=== PATIENT | male | born 1965 | race Caucasian/White ===

== ENCOUNTER 2023-03-29 07:04 | Emergency (ER) | payer OTHER, SELFPAY ==
[2023-03-29 07:11] VITALS: BP 145/79; PULSE 65; RESP 16; TEMP 36.8; O2SAT 96; BMI 26.6
--- NOTE | 2023-03-29 07:31 | ED_ITS ---
HPI - Neck Pain/Injury General Chief Complaint: Neck Pain/Injury Stated Complaint: something with c spine pain is 05/03 Time Seen by Provider: 03/29/23 07:30 Source: patient Mode of arrival: Ambulatory Limitations: no limitations History of Present Illness HPI Narrative: 57-year-old male with history of hypothyroidism who presents with complaint of thoracic back pain at the teeth 3/for region and radiation down his right arm. Patient states he is normally very active he has not really noticed a lot of back pain until last Thursday and it has been slowly increasing over time. He states pain radiates down his right arm, he has paresthesias. He feels like there is a decrease in his strength. He is able to move flex extend states he has not been dropping objects but notices a change. Patient states pain does not radiate down the left. He denies any trauma or injuries. Does not recall any particular episode that occurred and caused his pain. Patient states he has not had similar issues in the past. Patient states he would a prescription filled for naproxen from his primary care physician on Thursday started it yesterday without any improvement. Patient has seen chiropractors and saw an early in the week. Patient states no fevers, no chills. Denies any other daily medications besides levothyroxine. Has had prior hernia repairs, hemorrhoidectomy but no back surgeries or interventions. Reported allergy to penicillin. Denies tobacco, 1 alcoholic drink daily, no IV drugs or illicit. Related Data Home Medications Medication Instructions Recorded Confirmed Lactobacillus acidophilus 1 tab PO QDAY ##0 07/05/16 ascorbic acid (vitamin C) 500 mg 500 mg PO QDAY ##0 07/05/16 tablet Previous Rx's Medication Instructions Recorded diazepam 5 mg tablet (Valium) 5 mg PO TID PRN muscle spasm #10 03/29/23 tabs meloxicam 7.5 mg tablet 7.5 mg PO BID PRN pain #14 tabs 03/29/23 oxycodone 5 mg tablet 5 mg PO Q6H PRN pain #10 tabs 03/29/23 prednisone 10 mg tablets in a dose See Rx Instructions PO .COMPLEX 03/29/23 pack #15 ea Allergies Allergy/AdvReac Type Severity Reaction Status Date / Time Penicillins [PENICILLINS] Allergy Unknown Verified 03/29/23 07:19 Review of Systems Review of Systems ROS Unobtainable: All systems reviewed & are unremarkable except as noted in HPI and below Patient History Social History Smoking Status: Never smoker Smoking Status: Never smoker alcohol intake frequency: 0-2 drinks per day Substance Use Type: does not use Exam Narrative Exam Narrative: GEN: well nourished, well appearing male, alert and oriented x 3, patient appears to be in moderate distress. HEENT: Atraumatic, pupils are equal round reactive to light, extraocular movements are intact, there is no conjunctival pallor. HEART: Regular rate and rhythm without murmur, clicks, rubs. LUNGS:Lungs clear to auscultation, no wheezes, rales, crackles, chest moves symmetrically ABD:bowel sounds normal, soft, non-tender, no guarding, rebound, rigidity, no masses noted, no hepatosplenomegaly :No CVA tenderness BACK: No cervical, no lumbar vertebral point tenderness. Patient has mild thoracic tenderness T3 for at the right lateral border. Patient has normal range of motion, patient does appear uncomfortable. Patient's gait is normal. Rectal exam is deferred. 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 Patient has full range of motion of right upper extremity including flexion-extension adduction and abduction of fingers, wrist, elbow and shoulder. DTRs are 2/4 bilateral upper extremities. 2+ radial pulses bilateral upper extremities. Patient has sensation to light touch in bilateral upper extremities but does not appreciate a difference and perceived sensation right compared to left. MSCL: Non-tender, no muscle atrophy, full range of motion, normal gait NEURO:CN 2-12 intact, sensation normal SKIN: No rash, erythema or skin changes other than a small abrasion lateral to the thoracic spine at T6. Nontender over the area. Initial Vital Signs Initial Vital Signs: Vital Signs Temperature 98.2 F 03/29/23 07:11 Pulse Rate 65 03/29/23 07:11 Respiratory Rate 16 03/29/23 07:11 Blood Pressure 145/79 H 03/29/23 07:11 Pulse Oximetry 96 03/29/23 07:11 Oxygen Delivery Method Room Air 03/29/23 07:11 Course Orders Ordered: ED Orders 03/29/23 07:56 XR thoracic spine 3V Stat Discontinued Medications Diazepam (Diazepam 5 Mg Tablet) 5 mg PO NOW ONE Stop: 03/29/23 07:57 Last Admin: 03/29/23 08:13 Dose: 5 mg Documented By: MARLA Ketorolac Tromethamine (Ketorolac 30 Mg/Ml Vial) 30 mg IM NOW ONE Stop: 03/29/23 07:57 Last Admin: 03/29/23 08:14 Dose: 30 mg Documented By: MARLA Prednisone (Prednisone 20 Mg Tablet) 60 mg PO NOW ONE Stop: 03/29/23 07:57 Last Admin: 03/29/23 08:13 Dose: 60 mg Documented By: MARLA Vital Signs Vital signs: Vital Signs - 8 hr 03/29/23 07:11 03/29/23 10:05 Temperature 98.2 F 97.7 F Pulse Rate 65 67 Respiratory Rate 16 18 Blood Pressure 145/79 H 125/77 Pulse Oximetry 96 98 Oxygen Delivery Method Room Air Room Air MDM - Neck Pain/Injury Imaging Data thoracic xray: Radiologist's Impression: Close Thoracic Spine X-Ray (Signed) Kae Jay - 03/29/23 [place] [address] XRay Report Signed Patient: Bang Way MR#: [id number] : 1965 Acct:[id number] Age/Sex: 57 / M Date of Service: 03/29/23 Loc: ED Accession Number: [id number] Procedure: XR thoracic spine 3V Ordering Provider: Yolis Son D.O. PROCEDURE: XR THORACIC SPINE 3V INDICATIONS: back pain t3/4 w/ rad r arm. TECHNIQUE: 3 views of the thoracic spine were acquired. COMPARISON: None. FINDINGS: Bones: No fractures or dislocations. No suspicious bony lesions. 12 pairs of ribs are noted, and appear intact where visualized. Soft tissues: No paravertebral stripe thickening. IMPRESSION: No visible fractures or pathologic subluxation. Dictated by: Kae Jay M.D. on 03/29/2023 at 9:13 Approved by: Kae Jay M.D. on 03/29/2023 at 9:14 [facility] Narrative Medical decision making narrative: 57-year-old male presents with complaint of thoracic pain radiating down his right arm, no recent trauma that he appreciates. He has not had similar in the past. He is very mild tenderness to the right lateral border of the thoracic spine but not directly over. 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 Patient has tried naproxen at home. Plan for dose of Toradol, Valium, prednisone x-ray imaging to evaluate for any obvious fracture or lesions as patient is a 57-year-old male. X-ray does not show any acute change. Patient was able to rest and sit in the chair although he still has discomfort. He defers additional pain medications currently. Discussed with patient needs follow-up with orthopedic surgery potential intervention, discussed red flag symptoms and return precautions. Discharge Plan Departure Patient Disposition: Home Clinical Impression: Back pain, thoracic, Radiculopathy affecting upper extremity Activity Restrictions/Additional Instructions: Please follow-up with orthopedic surgery or pain management. Context are completed below, please call tomorrow morning to set up follow-up. You may take Tylenol up to a 1000 mg every 6 hours as needed. You may take meloxicam 1 tablet every 12 hours as needed for pain. Do not take with naproxen, Aleve or other NSAIDs such as ibuprofen. Take muscle relaxer 1 tablet every 8 hours as needed. This medication can make you sleepy do not drive, perform hazardous activities or make any major decisions while taking it. Take prednisone until completed. Prescription sent to [facility] in [place]. Please return for fevers, rapidly worsening pain, worsening weakness numbness, difficulty with building maintenance supervisor or dropping objects, loss of bowel or bladder control, can not feel or move your extremity, new rash or other new or concerning changes. Prescriptions: New meloxicam 7.5 mg tablet 7.5 mg PO BID PRN (Reason: pain) Qty: 14 0RF diazepam [Valium] 5 mg tablet 5 mg PO TID PRN (Reason: muscle spasm) Qty: 10 0RF prednisone 10 mg tablets,dose pack See Rx Instructions .ROUTE .COMPLEX Qty: 15 0RF Rx Instructions: Take 5 tablets p.o. x1 day, 4 tablets p.o. x1 day, 3 tablets p.o. x1 day, 2 tablets p.o. x1 day, 1 tablet p.o. x1 day oxycodone 5 mg tablet 5 mg PO Q6H PRN (Reason: pain) Qty: 10 0RF No Action ascorbic acid (vitamin C) 500 MG tablet 500 mg PO QDAY Qty: 0 Lactobacillus acidophilus 1 EACH capsule 1 tab PO QDAY Qty: 0 Referrals: Damien Christianson DO [Physician] - Coreen Noble MD [Physician] - Miscellaneous,MD Jazmine [Primary Care Provider] - Stand Alone Forms: Patient Portal/API
--- NOTE | 2023-03-29 07:56 | DI.RAD.S_ITS ---
PROCEDURE: XR THORACIC SPINE 3V INDICATIONS: back pain t3/4 w/ rad r arm. TECHNIQUE: 3 views of the thoracic spine were acquired. COMPARISON: None. FINDINGS: Bones: No fractures or dislocations. No suspicious bony lesions. 12 pairs of ribs are noted, and appear intact where visualized. Soft tissues: No paravertebral stripe thickening. IMPRESSION: No visible fractures or pathologic subluxation. Dictated by: Kae Jay M.D. on 03/29/2023 at 9:13 Approved by: Kae Jay M.D. on 03/29/2023 at 9:14
[2023-03-29] MEDS: predniSONE 20 MG TABLET 60 MG PO (08:13)
[2023-03-29] MEDS: diazePAM 5 MG TABLET PO (08:13)
[2023-03-29] MEDS: KETOROLAC 30 MG/ML VIAL IM (08:14)
[2023-03-29 10:05] VITALS: BP 125/77; PULSE 67; RESP 18; TEMP 36.5; O2SAT 98
== END 2023-03-29 10:05 | disposition home or self-care (01) ==
PROVIDERS: Emergency Provider Emergency Medicine
DX: M54.6 Pain in thoracic spine (principal); M54.16 Radiculopathy, lumbar region
CPT/HCPCS: 72072; 96372; 99283; 99284; J1885